=== PATIENT | female | born 1975 | race Caucasian/White ===

== ENCOUNTER 2024-09-05 10:40 | Day surgery (SDC) | payer BC ==
[2024-08-29 12:01] LABS: BASOPHILS # (AUTO) 0.1 X10'3 (0-0.2); BASOPHILS % (AUTO) 0.9 % (0-1); EOSINOPHILS % (AUTO) 0.3 % (0-6); LYMPHOCYTES # (AUTO) 1.8 X10'3 (1.1-4.8); LYMPHOCYTES % (AUTO) 24.3 % (21-51); MEAN CORPUSCULAR HEMOGLOBIN 27.7 PG (27.0-31.0); MEAN CORPUSCULAR HGB CONC 32.9 g/dL (33.0-36.5); MEAN CORPUSCULAR VOLUME 84.2 FL (78-98); MEAN PLATELET VOLUME 7.6 FL (7.4-10.4); MONOCYTES # (AUTO) 0.3 X10'3 (0-0.9); MONOCYTES % (AUTO) 4.3 % (2-12); NEUTROPHILS # (AUTO) 5.1 X10'3 (1.8-7.7); NEUTROPHILS % (AUTO) 70.2 % (42-75); PRE OP HEMATOCRIT 41.4 % (35.0-45.0); PRE OP HEMOGLOBIN 13.6 g/dL (12.0-16.0); PRE OP PLATELET COUNT 287 X10'3 (140-440); PRE OP WHITE BLOOD COUNT 7.2 10'3 (4.8-10.8); RED BLOOD COUNT 4.91 X10'6 (4.20-5.60); RED CELL DISTRIBUTION WIDTH 13.7 % (11.5-14.5)
[2024-08-29 12:29] LABS: ALBUMIN 3.9 G/DL (3.4-5.0); ALBUMIN/GLOBULIN RATIO 1.1 (1.1-1.5); ALKALINE PHOSPHATASE 96 IU/L (46-116); BLOOD UREA NITROGEN 16 MG/DL (7-18); CALCIUM 8.6 MG/DL (8.5-10.1); CHLORIDE 104 MMOL/L (99-107); CREATININE 0.89 MG/DL (0.40-0.90); PRE OP ALT 16 U/L (30-65); PRE OP ANION GAP 6 (8-16); PRE OP AST 15 U/L (10-37); PRE OP BILIRUB, TOTAL 0.3 MG/DL (0.0-1.0); PRE OP GLUCOSE 103 MG/DL (70-104); PRE OP POTASSIUM 3.7 MMOL/L (3.4-5.1); PRE OP SODIUM 138 MMOL/L (135-145); TOTAL CARBON DIOXIDE 28.1 MMOL/L (24-32); TOTAL PROTEIN 7.4 G/DL (6.4-8.2); eGFR 68 ML/MIN
[2024-09-05] VITALS (11 sets, daily range): BP systolic 132–165; BP diastolic 78–99; PULSE 74–98; RESP 12–17; TEMP 98.7; O2SAT 94–100
[~2024-09-05] VITALS: Ht 170.2 cm; Wt 70.3 kg
[2024-09-05] MEDS: ceFAZolin 2gm in dextrose, iso 50 ML IV ONE (05:30)
[~2024-09-05 10:40] MED LIST: ALPR0.5T8 PO; ESOM20CA PO; FEXO-219 PO; FLUT15.815 BOTHNARES; PROGEST VG; [UNRECOGNIZED DRUG - OTHER] VG
[2024-09-05] MEDS: ringers solution, lacted 1,000 ML IV SCH ×2 (11:22→16:13)
[2024-09-05] MEDS: famotidine 20mg tablet PO ONE (11:22)
[2024-09-05] MEDS ORDERED: BUPIVAcaine 2.5mg/ml inj 50ml vial (contains preservative) ONE (13:05)
[2024-09-05] MEDS ORDERED: LIDOcaine 1% 30ml preserv. free vial ONE (13:05)
[2024-09-05] MEDS ORDERED: sevoflurane 250ml liquid IH ONE (14:12)
[2024-09-05] MEDS ORDERED: fentaNYL/PF 50MCG/1 ML 2ML syringe ONE (14:12)
[2024-09-05] MEDS ORDERED: midazolam 1 mg/ML 2ml injection ONE (14:12)
[2024-09-05] MEDS ORDERED: propofol inj 20 ML IV ONE (14:12)
[2024-09-05] MEDS ORDERED: rocuronium 10mg/ml inj IV ONE (14:14)
[2024-09-05] MEDS ORDERED: metroNIDAZOLE-Flagyl 500mg/NS 100 ML IV ONE (14:42)
[2024-09-05] MEDS ORDERED: ondansetron/PF 4mg/2ml inj ONE (15:06)
[2024-09-05] MEDS ORDERED: dexamethasone sod phosphate 4mg/ml inj. ONE (15:06)
[2024-09-05] MEDS ORDERED: sugammadex 200mg/2ml injection IV ONE (15:15)
[2024-09-05] MEDS: BUPIVAcaine 0.25% w/Epi /PF 30ml vial IJ ONE (15:19)
[2024-09-05] MEDS ORDERED: ondansetron/PF 4mg/2ml inj IV PRN (15:45)
[2024-09-05] MEDS ORDERED: morphine 4 MG/ML inj SYRINge IV PRN (15:45)
[2024-09-05] MEDS ORDERED: HYDROcodone/acetaminophen 5mg/325mg tablet PO PRN (15:45)
[2024-09-05] MEDS ORDERED: proCHLORperazine 10 MG/2 ml inj IV PRN (15:45)
[2024-09-05] MEDS ORDERED: meperidine/PF 25mg/ml syringe IV PRN ×2 (15:45)
[2024-09-05] MEDS ORDERED: morphine 2 MG/ML inj. syringe IV PRN (15:45)
[2024-09-05] MEDS: meperidine/PF 25mg/ml syringe IV PRN (15:53)
== END 2024-09-05 17:12 | disposition home or self-care (01) ==
LOC: PAS 10:40
PROVIDERS: ATTEND Surgery
DX: K38.8 Other specified diseases of appendix (principal); D37.3 Neoplasm of uncertain behavior of appendix; K21.9 Gastro-esophageal reflux disease without esophagitis; I25.2 Old myocardial infarction; M19.90 Unspecified osteoarthritis, unspecified site; Z79.890 Hormone replacement therapy; Z79.899 Other long term (current) drug therapy; Z90.710 Acquired absence of both cervix and uterus; Z90.721 Acquired absence of ovaries, unilateral; Z98.890 Other specified postprocedural states; Z88.2 Allergy status to sulfonamides
CPT/HCPCS: 36415; 44970; 80053; 82948; 85025; J0665; J0690; J1100; J2003; J2175; J2250; J2405; J2704; J3010; J3490; J7030; J7120; S2900; Z7506; Z7508; Z7512; A4215; A4618; C1758; S0020